=== PATIENT | male | born 1955 | race Caucasian/White ===

== ENCOUNTER → 2019-06-16 12:46 | Outpatient (CLI) | payer MEDICARE, MEDICAID, SELFPAY ==
--- NOTE | 2019-06-16 12:53 | MR_ITS ---
PROCEDURE: MR SHOULDER RT W CON CLINICAL INDICATION: CONCERN FOR LABRAL TEAR Right shoulder pain, injury with pain, limited range of motion COMPARISON: IR ARTHROGRAM SHOULDER RT from 06/16/2019 TECHNIQUE: This is a MR arthrogram. Routine post intra-articular multiplanar multi echo sequences are performed. FINDINGS: There is prominent acromioclavicular arthropathy with a low-lying acromion and subacromial stenosis. There is a moderate degree of motion artifact which somewhat obscures fine detail. There is a full-thickness tear involving the distal aspect of the supraspinatus tendon at its insertion on the greater tuberosity. Tendinopathy/tendinosis is noted with thickening of the supraspinatus tendon with increased T2 signal. Contrast is present in both superior and inferior surfaces of the supraspinatus tendon. There does appear to be and some intact fibers anteriorly. There is tendinopathy/tendinosis of the infraspinatus tendon. The subscapularis and teres minor tendons are intact. There also appears to be partial tear of the distal aspect of the infraspinatus tendon. No definite labral tear. There is a sublabral recess irregular contrast filling is noted in the sub labral space suggesting humeral avulsion of the inferior glenohumeral ligament. Bicipital tendon is in place. The contrast it extends into the acromioclavicular joint space which is somewhat prominent. There is mild prominence of the acromial humeral space suggesting an old AC separation. IMPRESSION: 1. Full-thickness tear of the supraspinatus tendon distally and posteriorly. Intact fibers are present superiorly 2. Partial tear of the infraspinatus tendon 3. Avulsion of the inferior glenohumeral ligament/HAGL lesion 4. Prominent acromioclavicular joint which fills with contrast suggesting prior AC separation Dictated by: Jermaine Molina MD 06/19/2019 14:48 Signed by: <Electronically signed by Jermaine Molina MD in [place]> 06/19/2019 14:48
--- NOTE | 2019-06-16 13:25 | IR_ITS ---
PROCEDURE: IR ARTHROGRAM SHOULDER RT CLINICAL INDICATION: RT SHOULDER P AIN COMPARISON: MR SHOULDER RT W CON from 06/16/2019 FINDINGS: Following obtaining informed consent under aseptic conditions and local anesthesia with 1 percent buffered lidocaine, a 25 gauge needle was inserted along the superior aspect of the glenoid medially into the shoulder capsule at approximately 10 cc of a mixture of Isovue-300, ProHance, and 1 percent lidocaine was injected. Contrast immediately filled the shoulder joint. The patient tolerated the procedure well without evidence of median complication. The patient did exercise his arm and 2 images are obtained. This demonstrates contrast outlining the supraspinatus tendon both superiorly and inferiorly consistent with a rotator cuff tear. Contrast also flows into the subscapular bursa and also fills the acromioclavicular joint space. These findings are consistent with rotator cuff tear. The patient was then taken to the MRI suite where MR arthrogram images were obtained Fluoroscopy time: 1 minutes and 16 seconds IMPRESSION: Uneventful right shoulder arthrogram demonstrating a rotator cuff tear. Dictated by: Jermaine Molina MD 06/16/2019 16:07 Signed by: <Electronically signed by Jermaine Molina MD in [place]> 06/16/2019 16:07
--- NOTE | 2019-06-16 13:26 | XR_ITS ---
PROCEDURE: XR SHOULDER RT MIN 2V CLINICAL INDICATION: RT SHOULDER PAIN COMPARISON: No exams were available for comparison FINDINGS: There are mild osteoarthritic changes of the glenohumeral joint and acromioclavicular joint. There is mild subacromial stenosis. No fracture or dislocation. IMPRESSION: Mild osteoarthritic change with mild subacromial stenosis Dictated by: Jermaine Molina MD 06/16/2019 13:36 Signed by: <Electronically signed by Jermaine Molina MD in [place]> 06/16/2019 13:36
== END ==
PROVIDERS: PCP Nurse Practitioner Family; Visit Provider Physician Assistant
DX: M75.51 Bursitis of right shoulder (principal)
CPT/HCPCS: 73030; 73040; 73222; Q9967